=== PATIENT | female | born 1980 | race Caucasian/White ===

== ENCOUNTER 2019-10-08 12:51 | Outpatient (CLI) | payer BC ==
--- NOTE | 2019-10-08 15:09 | ULT ---
TRANSABDOMINAL PELVIC ULTRASOUND: INDICATION: History of blighted ovum and with persistent vaginal bleeding. TECHNIQUE: Mcdonald scale, color Doppler, and spectral Doppler images were obtained of the pelvis via a transabdomin al approach. FINDINGS: The uterus measures 9.9 x 4.7 x 7.2 cm. The endometrial stripe measures 1.1 cm. No definite evidenc e for retained products of conception is noted. The right ovary measures 4.2 x 3.9 x 3.7 cm. There is a 3.1 cm cyst within the right ovary. The left ovary measures 3.6 x 2.5 x 2.5 cm. There is jasmyn l flow to both ovaries. No free fluid is evident. IMPRESSION: 1. Mildly thickened endometrial stripe. Recommend correlation with phase of menstruation. 2. No overt evidence for suggest retained products of conception. 3. Right ovarian cyst. POS: BH
== END 2019-10-08 12:52 | disposition home or self-care (01) ==
LOC: SCSULT 12:51
PROVIDERS: ATTEND Family Medicine
DX: O02.1 Missed abortion (principal); R93.89 Abnormal findings on diagnostic imaging of other specified body structures; N83.201 Unspecified ovarian cyst, right side
CPT/HCPCS: 76856; 93976